=== PATIENT | female | born 1945 | race Caucasian/White ===

== ENCOUNTER → 2017-10-21 | Outpatient (CLI) | payer MEDICARE, OTHER ==
[~2017-10-21] MED LIST: ANAS1 PO; CHOL10002 PO; DILT240 PO; LISI10 PO; LOVA20 PO; MULVITB&C PO; MULVITMIND PO; ROSU5 PO; SPIR25 PO; VALS80 PO
== END | disposition home or self-care (01) ==
LOC: LAB SHORT 13:31
DX: N39.0 Urinary tract infection, site not specified (principal)
CPT/HCPCS: 87077; 87086; 87186

== ENCOUNTER → 2019-06-20 | Outpatient (CLI) | payer MEDICARE, OTHER | END | disposition home or self-care (01) | LOC: LAB EV 14:10 → LAB SHORT 14:10 | DX: N39.0 Urinary tract infection, site not specified (principal) | CPT/HCPCS: 87077; 87086; 87186 ==

== ENCOUNTER → 2019-11-10 | Outpatient (CLI) | payer MEDICARE, OTHER | LOC: LAB EV 12:15 → LAB SHORT 12:15 | DX: N39.0 Urinary tract infection, site not specified (principal) | CPT/HCPCS: 87077; 87086; 87186 ==

== ENCOUNTER 2020-10-21 09:40 | Day surgery (SDC) | payer MEDICARE, OTHER | END 2020-10-21 22:50 | disposition home or self-care (01) | LOC: MOI US 09:40 | DX: D05.11 Intraductal carcinoma in situ of right breast (principal); R92.0 Mammographic microcalcification found on diagnostic imaging of breast; Z85.3 Personal history of malignant neoplasm of breast | CPT/HCPCS: 19083; 77065; 88305; 88342; 88360; A4648; G0279 ==

== ENCOUNTER 2020-11-08 08:59 | Day surgery (SDC) | payer MEDICARE, OTHER ==
[~2020-11-08] VITALS: Ht 167.6 cm; Wt 69.9 kg
[~2020-11-08 08:59] MED LIST changes: +LOSA25 PO
--- NOTE | 2020-11-08 15:10 | NUR ---
PT FROM PACU TO STEP POST MASTECTOMY. PT C/O MILD PAIN. DURING STAY, PT MEDICATED WITH NORCO FOR INCREASE OF PAIN. PT EDUCATED ON ALONDRA DRAIN AND REPEATS HOW TO EMPTY AND RECORD. PT PROVIDED URINE SPECIMEN CUP AND UNDERSTANDS TO RECORD ML. PT ATE AND DRANK FLUID PRIOR TO DC. SPOUSE JULIANN PICKED HER UP Ambulatory in Day Surgery Patient States Post-Procedure ride home has been arranged. Discharged via wheelchair to private car for ride home.
== END 2020-11-08 22:45 | disposition home or self-care (01) ==
LOC: ORSCMMR 08:59 → NM 08:59
PROVIDERS: Surgery
PROC: 0HB5XZX Excision of Chest Skin, External Approach, Diagnostic (ICD-10-PCS; principal; 2020-11-08 11:00)
PROC: 0HTT0ZZ Resection of Right Breast, Open Approach (ICD-10-PCS; principal; 2020-11-08 11:00)
PROC: 07B50ZZ Excision of Right Axillary Lymphatic, Open Approach (ICD-10-PCS; principal; 2020-11-08 11:00)
DX: C50.111 Malignant neoplasm of central portion of right female breast (principal); C77.3 Secondary and unspecified malignant neoplasm of axilla and upper limb lymph nodes; L98.8 Other specified disorders of the skin and subcutaneous tissue; E78.00 Pure hypercholesterolemia, unspecified; I10 Essential (primary) hypertension; Z85.3 Personal history of malignant neoplasm of breast; Z92.21 Personal history of antineoplastic chemotherapy; Z92.3 Personal history of irradiation; Z79.899 Other long term (current) drug therapy; Z77.22 Contact with and (suspected) exposure to environmental tobacco smoke (acute) (chronic); Z17.1 Estrogen receptor negative status [ER-]
CPT/HCPCS: 38792; 88305; 88307; A9270; A9520; J0690; J1100; J2210; J2250; J2405; J2704; J2710; J3010; J7120; Q9968

== ENCOUNTER 2021-01-06 09:08 | Day surgery (SDC) | payer MEDICARE, OTHER ==
[~2021-01-06] VITALS: Ht 165.1 cm; Wt 68.1 kg
--- NOTE | 2021-01-06 11:02 | NUR ---
Ambulatory in Day Surgery Surgical site prepped with 2% Chlorhexidine cloth wipe. History, Chart, Medications and Allergies reviewed before start of procedure.Lungs clear T/O to Auscultation. Music therapy session facilitated. I provided soft acoustic guitar music for augmentation of well being, relaxation, leisure or non-pharmaceutical pain or stress alleviation. Patient and or family unit responded favorably to the intervention showing signs of improvement in emotional orientation or bodily disposition.Patient confirms NPO status and agrees with scheduled surgery. Patient reports completing Chlorhexadine shower X2 prior to admission to hospital. PT BROUGHT IN DIRECTLY FROM CAR. VERIFIED IDENTITIY AT FRONT DOOR AND BROUGHT PT INTO ENDO 2 USING COVID PRECAUTIONS. PT VERBALIZED SHE FELT NAUSEATED. SPOKE TO DR JONES AND WILL GIVE 4MG ZOFRAN. NO EMESIS AT THIS TIME.
--- NOTE | 2021-01-06 14:12 | NUR ---
01/06/21 1411 [facility],JEFFREY HARTMAN RN RECOVERED PT AFTER PROCEDURE IN OR 2 STARTING AT 1335. PT RETURNED TO PRE OP ROOM FOR DISCHARGE AFTER RECOVERY WAS COMPLETED.
--- NOTE | 2021-01-06 14:25 | NUR ---
FOLLOWED PATIENT TO STEP FROM OR2. JOSE SEN HELPED WITH FOLLOWING CARE IN OR 2. Dressing to procedure site clean, dry, intact with no visible drainage, swelling, erythema or bruising noted.
--- NOTE | 2021-01-06 14:47 | NUR ---
Patient up to Ambulate independently. Gait steady. Discharge instructions reviewed with patient. Patient verbalizes understanding. Copy given to patient to take home. Patient States Post-Procedure ride home has been arranged. Discharged via wheelchair to private car for ride home. UP WITH ASSIST, NAD, NO C/O PAIN, ASSISTED WITH GETTING DRESSED, DC INSTRUCTIONS REVIEWED WITH SPOUSE WHO IS WAITING IN CAR.
== END 2021-01-06 22:58 | disposition home or self-care (01) ==
LOC: ORSCMMR 09:08
PROVIDERS: Surgery
PROC: 05HN33Z Insertion of Infusion Device into Left Internal Jugular Vein, Percutaneous Approach (ICD-10-PCS; principal; 2021-01-06 10:30)
DX: C50.911 Malignant neoplasm of unspecified site of right female breast (principal); I10 Essential (primary) hypertension; K21.9 Gastro-esophageal reflux disease without esophagitis; Z79.899 Other long term (current) drug therapy
CPT/HCPCS: 77001; C1788; J0690; J1100; J1642; J2250; J2370; J2405; J2704; J3010; J7120

== ENCOUNTER 2021-02-05 09:37 | Day surgery (SDC) | payer MEDICARE, OTHER | END 2021-02-05 22:45 | disposition home or self-care (01) | LOC: RAD 09:37 | DX: C50.411 Malignant neoplasm of upper-outer quadrant of right female breast (principal); C79.51 Secondary malignant neoplasm of bone; C77.3 Secondary and unspecified malignant neoplasm of axilla and upper limb lymph nodes | CPT/HCPCS: 36598; Q9967 ==

== ENCOUNTER 2021-02-23 00:25 | Emergency (ER) | payer MEDICARE, OTHER ==
[~2021-02-23] VITALS: Ht 160 cm; Wt 65.8 kg
[2021-02-23 01:11] LABS: Hemoglobin 11.3 g/dL (11.5-16.0); Mean Corpuscular HGB 31.3 pg (26.0-34.0); Mean Corpuscular HGB Conc 33.2 g/dL (31.5-36.5); Mean Corpuscular Volume 94 fL (80-100); Mean Platelet Volume 11.1 fL (9.1-12.4); Platelet Count 310 K/mm3 (150-400); RDW Coefficient Variation 13.3 % (11.7-14.2); RDW Standard Deviation 44.9 fL (35.1-46.3); Red Blood Cell Count 3.61 M/mm3 (3.80-5.20); White Blood Cell Count 7.28 K/mm3 (4.00-11.30)
[2021-02-23 01:25] LABS: International Normalized Ratio 1.16; Prothrombin Time Results 12.4 Sec (9.7-11.5)
[2021-02-23 01:30] LABS: Alanine Aminotransfer (ALT/SGP 16 U/L (12-78); Albumin, Blood 2.9 g/dL (3.4-5.0); Alk Phos 71 U/L (50-136); Anion Gap 10 mmol/L (6-16); Aspartate Aminotrans (AST/SGOT 10 U/L (12-37); Bilirubin, Total 1.6 mg/dL (0.1-1.0); Blood Urea Nitrogen 22 mg/dL (8-24); Bun/Creatinine Ratio 25.6 (12.0-20.0); CO2, Blood 23 mmol/L (21-32); Calcium, Blood 7.8 mg/dL (8.5-10.1); Chloride, Blood 102 mmol/L (98-108); Creatinine, Blood 0.86 mg/dL (0.40-1.00); Glomerular Filtration Rate >60 (60-); Glucose, Blood 167 mg/dL (70-99); Magnesium, Blood 1.4 mg/dL (1.6-2.4); Potassium, Blood 3.9 mmol/L (3.5-5.5); Sodium, Blood 135 mmol/L (136-145); Total Protein, Blood 5.9 g/dL (6.4-8.2); Troponin I 0.019 ng/mL (0.000-0.040)
[2021-02-23 01:36] LABS: BAND PERCENT MAN 4 % (0-8); BASOPHILS PERCENT MAN 0 % (0-2); EOSINOPHILS ABSOLUTE MAN 0.07 K/mm3 (0.00-0.68); EOSINOPHILS PERCENT MAN 1 % (0-6); LYMPHOCYTES ABSOLUTE MAN 0.21 K/mm3 (0.84-5.20); LYMPHOCYTES PERCENT MAN 3 % (21-46); METAMYELOCYTE ABSOLUTE MAN 0.07 K/mm3 (0.00-0.00); METAMYELOCYTE PERCENT MAN 1 % (0-0); MONOCYTES ABSOLUTE MAN 0.21 K/mm3 (0.16-1.47); MONOCYTES PERCENT MAN 3 % (4-13); MYELOCYTE ABSOLUTE MAN 0.07 K/mm3 (0.00-0.00); MYELOCYTE PERCENT MAN 1 % (0-0); NEUTROPHILS ABSOLUTE MAN 6.62 K/mm3 (1.96-9.15); SEG NEUTROPHILS PERCENT MAN 87 % (41-73); TOTAL CELLS COUNTED 100
== END 2021-02-23 04:28 | disposition home or self-care (01) ==
LOC: ER 00:25
PROVIDERS: Emergency Medicine
DX: I48.91 Unspecified atrial fibrillation (principal); E83.42 Hypomagnesemia; I10 Essential (primary) hypertension; E78.5 Hyperlipidemia, unspecified; Z79.899 Other long term (current) drug therapy
CPT/HCPCS: 36415; 71045; 71260; 80053; 83735; 83880; 84484; 85025; 85610; 93005; 93010; 96365-59; 96375-59; 96376-59; 99285-25; J1160; J3475; J7030; Q9967

== ENCOUNTER → 2023-05-27 | Outpatient (CLI) | payer MEDICARE ==
[2023-05-27 09:43] LABS: BASOPHILS ABSOLUTE AUTO 0.03 K/mm3 (0.00-0.23); BASOPHILS PERCENT AUTO 0 % (0-2); EOSINOPHILS ABSOLUTE AUTO 0.19 K/mm3 (0.00-0.68); EOSINOPHILS PERCENT AUTO 2 % (0-6); Hematocrit 40.9 % (33.0-51.0); Hemoglobin 14.2 g/dL (11.5-16.0); IMMATURE GRAN ABSOLUTE AUTO 0.04 K/mm3 (0.00-0.10); IMMATURE GRAN PERCENT AUTO 0 % (0-1); LYMPHOCYTES PERCENT AUTO 17 % (21-46); MONOCYTES ABSOLUTE AUTO 0.92 K/mm3 (0.16-1.47); MONOCYTES PERCENT AUTO 7 % (4-13); Mean Corpuscular HGB 32.2 pg (26.0-34.0); Mean Corpuscular HGB Conc 34.7 g/dL (31.5-36.5); Mean Corpuscular Volume 93 fL (80-100); Mean Platelet Volume 9.9 fL (9.1-12.4); NEUTROPHILS PERCENT AUTO 74 % (41-73); Platelet Count 244 K/mm3 (150-400); RDW Coefficient Variation 12.4 % (11.7-14.2); RDW Standard Deviation 42.1 fL (35.1-46.3); Red Blood Cell Count 4.41 M/mm3 (3.80-5.20); White Blood Cell Count 12.88 K/mm3 (4.00-11.30)
[2023-05-27 10:05] LABS: Albumin, Blood 3.5 g/dL (3.4-5.0); Bilirubin, Total 0.8 mg/dL (0.1-1.0); Calcium, Blood 9.2 mg/dL (8.5-10.1); Creatinine, Blood 1.05 mg/dL (0.40-1.00); Globulin, Blood 3.6 g/dL (2.2-4.0); Potassium, Blood 3.6 mmol/L (3.5-5.5); Total Protein, Blood 7.1 g/dL (6.4-8.2)
== END ==
LOC: LAB SHORT 09:38 → LAB 09:38
PROVIDERS: Emergency Medicine
DX: N39.0 Urinary tract infection, site not specified (principal)
CPT/HCPCS: 80053; 85025; 87077; 87086; 87186

== ENCOUNTER → 2024-11-10 | Outpatient (CLI) | payer OTHER | END | disposition home or self-care (01) | LOC: LAB SHORT 19:00 → LAB 19:00 | DX: N39.0 Urinary tract infection, site not specified (principal) | CPT/HCPCS: 87077; 87086; 87186 ==